=== PATIENT | female | born 2000 | race African-American/Black ===

== ENCOUNTER 2022-06-11 14:25 | Emergency (ER) | payer OTHER, SELFPAY ==
[2022-06-11 14:39] VITALS: BP 135/74; PULSE 74; RESP 18; TEMP 36.9; O2SAT 100
--- NOTE | 2022-06-11 15:13 | ECG_ITS ---
Measurements Intervals [place] Rate: 72 P: 14 [place]: 136 QRS: -14 QRSD: 88 T: -2 QT: 396 QTc: 436 Interpretive Statements SINUS RHYTHM BORDERLINE T WAVE ABNORMALITY- ANT/INF LEADS BASELINE ARTIFACT- II, III, AVF BORDERLINE ECG NO PREVIOUS ECG AVAILABLE FOR COMPARISON Electronically Signed On 06-11-2022 15:25:44 CREDIT CONSULTANT by Junior Mcclure D.O.
--- NOTE | 2022-06-11 15:16 | ED.GENADULT ---
HPI - General Adult General Chief complaint: Unspecified Stated complaint: Left side Shoulder/Chest/back Pain Time Seen by Provider: 06/11/22 15:05 Source: patient, RN notes reviewed and old records reviewed Mode of arrival: ambulatory Limitations: no limitations History of Present Illness HPI narrative: 21 [facility], left shoulder and left chest pain which started this morning when she woke up. Patient denies any injury to her back or shoulder, patient states that she took ALeve this morning which did not help her discomfort. Patient denies any nausea or any shortness of breath or any radiation of pain down her arm. Patient states that she worked all day and it still hurts especially when arm is hanging down or if she lifts any thing using her left arm. Patient thinks she slept in a bad position. Patient reports that she had flu bug on Tuesday and Tuesday of this week. MD complaint: left upper chest,left shoulder and upper back discomfort. Onset (ago): day(s) (this morning when she woke up) Severity scale (1-10): 6 Quality: aching Treatments prior to arrival: NSAID Related Data Home Medications Medication Instructions Recorded Confirmed ferrous sulfate 325 mg (65 mg 325 mg PO DAILY 06/11/22 06/11/22 iron) tablet (FeroSul) medroxyprogesterone 10 mg tablet 10 mg PO DAILY 06/11/22 06/11/22 Allergies Allergy/AdvReac Type Severity Reaction Status Date / Time No Known Allergies Allergy Verified 06/11/22 14:52 Review of Systems Review of Systems: CONSTITUTIONAL: Denies fever, chills, or sweats. EYES: Denies visual changes, redness, or discharge. ENT: Denies rhinorrhea, congestion, sore throat, or otalgia. CARDIOVASCULAR: reports left upper mid chest pain,no palpitations, or edema. RESPIRATORY: Denies cough or dyspnea. GASTROINTESTINAL: Denies abdominal pain, nausea, vomiting, or diarrhea. GENITOURINARY: Denies dysuria or hematuria. SKIN: Denies rash or itching. MUSCULOSKELETAL: reports left upper back pain,left shoulder and left chest region discomfort, myalgia. NEUROLOGIC: Denies headache, numbness, or weakness. PSYCHIATRIC: Denies anxiety or depression. All systems reviewed & are unremarkable except as noted in HPI and below [facility] Past Medical History Medical History (Updated 06/13/22 @ 22:24 by Clair Willoughby NP) Anemia Social History Social History (Updated 06/11/22 @ 20:31 by Clair Willoughby NP) Smoking status: Never smoker Alcohol intake: never Substance use: never Substance use type: does not use Gender identity (if verbalized by the patient): Female Comments At time of signature, agree with nursing past medical, surgical, social and family history. There is no relevant family history pertinent to the presenting complaint Exam Narrative: GENERAL: Well-appearing, well-nourished,morbidly obese and in no acute distress. HEAD: Normocephalic, atraumatic. EYES: PERRLA and EOMI. ENT: Nares clear, no rhinorrhea or epistaxis. Mucous membranes moist.TM's normal with good light reflex, throat pink with no swelling NECK: Supple.no lymphadenopathy CHEST: Clear to auscultation. No respiratory distress. SAO2 100% on room air HEART: Regular rate and rhythm. No murmur heard. Normal peripheral pulses. no nausea or diaphoresis denies any jaw or radiating pain down left arm ABDOMEN: Soft, nontender, nondistended, normal active bowel sounds. EXTREMITIES: Normal range of motion. No edema.discomfort to left side of upper chest and left shoulder and to left upper back, full ROM with good circulation and sensation to left arm. SKIN: Warm, dry, no rash. NEURO: No focal deficits. Alert and oriented x3. Course Course Emergency Course: Patient is aware of diagnosis, understands and agrees to treatment plan.? Anticipatory guidance given.? Patient agrees to follow-up as directed and is aware of reasons to seek care at the emergency department. Portions of this record may
== END 2022-06-11 15:46 | disposition home or self-care (01) ==
PROVIDERS: Emergency Provider Registered Nurse
DX: S29.011A Strain of muscle and tendon of front wall of thorax, initial encounter (principal); S46.912A Strain of unspecified muscle, fascia and tendon at shoulder and upper arm level, left arm, initial encounter; X58.XXXA Exposure to other specified factors, initial encounter; D64.9 Anemia, unspecified
CPT/HCPCS: 93005; 99203; G0463